=== PATIENT | female | born 1970 | race Caucasian/White ===

== ENCOUNTER 2018-04-15 19:58 | Emergency (ER) | payer SELFPAY ==
[~2018-04-15 19:58] MED LIST: ASPIRIN 81 MG TABLET, CHEWABLE ONE; CLOPIDOGREL BISULFATE 300 MG TABLET ONE; ENOXAPARIN SODIUM INJ 30 MG/0.3 ML DISP.SYRIN ONE
[2018-04-15 20:15] VITALS: BP 117/83
[2018-04-15] MEDS ORDERED: ASPIRIN 81 MG TABLET, CHEWABLE PO ONE (20:28)
[2018-04-15 20:39] LABS: ABSOLUTE EOSINOPHILS # (AUTO) 0.1 10^3/uL (0.0-0.6); ABSOLUTE LYMPHOCYTES (AUTO) 1.9 10^3/uL (0.5-4.7); ABSOLUTE MONOCYTES (AUTO) 0.7 10^3/uL (0.1-1.4); ABSOLUTE NEUT (AUTO) 7.1 10^3/uL (1.7-8.2); BASOPHILS % (AUTO) 0.3 % (0-2); EOSINOPHILS % (AUTO) 1.3 % (0-6); HEMATOCRIT 41.6 % (36.0-47.0); HEMOGLOBIN 13.9 g/dL (12.0-15.5); LYMPHOCYTES % (AUTO) 19.6 % (13-45); MEAN CORPUSCULAR HEMOGLOBIN 29.7 pg (27.0-33.4); MEAN CORPUSCULAR HGB CONC 33.5 g/dL (32.0-36.0); MEAN CORPUSCULAR VOLUME 89 fl (80-97); MONOCYTES % (AUTO) 7.1 % (3-13); PLATELET COUNT 174 10^3/uL (150-450); RED BLOOD COUNT 4.69 10^6/uL (3.72-5.28); RED CELL DISTRIBUTION WIDTH 13.8 % (11.5-14.0); SEGMENTED NEUTROPHILS % (AUTO) 71.7 % (42-78); TOTAL CELLS COUNTED % (AUTO) 100 %; WHITE BLOOD COUNT 9.8 10^3/uL (4.0-10.5)
--- NOTE | 2018-04-15 20:43 | ER Document Report ---
ED General - General Chief Complaint: Chest Pain Stated Complaint: CHEST PAIN Time Seen by Provider: 04/15/18 20:38 Mode of Arrival: Ambulatory Information source: Patient Notes: 47-year-old female with no significant past medical history presents with complaint of chest pain that started 3 hours prior to arrival. Pain is located centrally described as pressure with radiation to her left arm. Patient denies any associated diaphoresis, nausea, lightheadedness. She denies any prior history of [place]. She does have a 30 year smoking history. She does not take any medications. She denies any known drug allergies. TRAVEL OUTSIDE OF THE [place] IN LAST 30 DAYS: No - HPI Onset: This afternoon Quality of pain: Pressure Severity: Moderate Pain Level: 2 Associated symptoms: Other - Left arm pain Exacerbated by: Denies Relieved by: Denies Similar symptoms previously: No Recently seen / treated by doctor: No - Related Data Allergies/Adverse Reactions: No Known Allergies Allergy (Verified 04/15/18 22:49) Past Medical History - General Information source: Patient - Social History Smoking Status: Current Every Day Smoker Frequency of alcohol use: Occasional Drug Abuse: None Lives with: Spouse/Significant other Family History: Reviewed & Not Pertinent Patient has suicidal ideation: No Patient has homicidal ideation: No - Medical History Medical History: Negative Review of Systems - Review of Systems Notes: REVIEW OF SYSTEMS: CONSTITUTIONAL : Denies fever, chills, or sweats. Denies recent illness. Denies weight loss, recent hospitalizations. EENT: Denies visula changes, eye pain. Denies nasal or sinus congestion or discharge. Denies sore throat, oral lesions, difficulty swallowing. CARDIOVASCULAR: Patient admits to substernal chest pain with radiation to left arm RESPIRATORY: Denies cough, cold, or chest congestion. Denies shortness of breath, difficulty breathing, or wheezing. GASTROINTESTINAL: Denies abdominal pain or distention. Denies nausea, vomiting , or diarrhea. Denies blood in vomitus, stools, or per rectum. Denies black, tarry stools. Denies constipation. GENITOURINARY: Denies difficulty urinating, painful urination, burning, frequency, blood in urine, or vaginal discharge. MUSCULOSKELETAL: Denies back or neck pain or stiffness. Denies joint pain or swelling. SKIN: Denies rash, lesions or sores. HEMATOLOGIC : Denies easy bruising or bleeding. LYMPHATIC: Denies swollen, enlarged glands. NEUROLOGICAL: Denies confusion or altered mental status. Denies passing out or loss of consciousness. Denies dizziness or lightheadedness. Denies headache. Denies weakness or paralysis or loss of use of either side. Denies problems with gait or speech. Denies sensory loss, numbness, or tingling. Denies seizures. PSYCHIATRIC: Denies anxiety or stress. Denies depression, suicidal ideation, or homicidal ideation. Physical Exam - Vital signs Vitals: Temp Pulse BP Pulse Ox 97.9 F 102 H 117/83 100 04/15/18 20:13 04/15/18 20:13 04/15/18 20:13 04/15/18 20:13 Interpretation: Normal, Tachycardic. No: Febrile - Notes Notes: PHYSICAL EXAMINATION: GENERAL: Well-appearing, well-nourished and in no acute distress. HEAD: Atraumatic, normocephalic. EYES: Pupils equal round and reactive to light, extraocular movements intact, conjunctiva are normal. ENT: Nares patent, oropharynx clear without exudates. Moist mucous membranes. NECK: Normal range of motion, supple without lymphadenopathy LUNGS: Breath sounds clear to auscultation bilaterally and equal. No wheezes rales or rhonchi. HEART: Tachycardic, regular rhythm without murmurs ABDOMEN: Soft, nontender, nondistended abdomen. No guarding, no rebound. No masses appreciated. Female : deferred Musculoskeletal: Normal range of motion, no pitting or edema. No cyanosis. NEUROLOGICAL: Cranial nerves grossly intact. Normal speech, normal gait. Normal sensory, motor exams PSYCH: Normal mood, normal affect. SKIN: Warm, Dry, normal turgor, no rashes or lesions noted. Course - Re-evaluation Re-evalutation: 04/15/18 20:41 47-year-old female presented with complaint of 3 hours of substernal chest pain. EKG again for ST elevation in leads II, III and aVF. Repeat EKG shows progression of ST elevation now involving V6. I spoke to the rim fire priming tool setter Dr. Samuels at [facility] who recommends holding lytics if patient is pain-free which she is currently. She did receive aspirin, Lovenox and morphine. Patient remained stable throughout her ED course. Patient will be transported to [facility]. 04/15/18 23:21 - Vital Signs Vital signs: Temp Pulse Resp BP Pulse Ox 97.9 F 102 H 87 H 117/83 100 04/15/18 21:00 04/15/18 21:00 04/15/18 21:00 04/15/18 21:00 04/15/18 21:00 - Laboratory Result Diagrams: 04/15/18 20:20 04/15/18 20:20 Laboratory results interpreted by me: 04/15/18 20:20 BUN 22 H Est GFR (Non-Af Amer) 59 L Glucose 124 H AST 195 H ALT 158 H Creatine Kinase 187 H - Diagnostic Test Radiology reviewed: Image reviewed - EKG Interpretation by Me EKG shows normal: ST-T Waves - ST elevation in 2 3 and aVF, V6 Rate: Tachycardia When compared to previous EKG there are: Previous EKG unavailable Critical Care Note - Critical Care Note Total time excluding time spent on procedures (mins): 30 - minutes of critical care time spent in direct contact evaluating and reevaluating the patient, treating symptoms, reviewing labs and studies and speaking with family and consultants excluding any procedures Discharge - Discharge Clinical Impression: STEMI (ST elevation myocardial infarction) Qualifiers: Involved coronary artery: unspecified coronary artery Qualified Code(s): I21.3 - ST elevation (STEMI) myocardial infarction of unspecified site Condition: Fair Disposition: [facility]
[2018-04-15] MEDS ORDERED: MORPHINE SULFATE 10 MG/ML INJ ONE (20:52)
[2018-04-15 20:55] LABS: ALANINE AMINOTRANSFERASE 158 U/L (9-52); ALBUMIN 4.6 g/dL (3.5-5.0); ALKALINE PHOSPHATASE 77 U/L (38-126); ANION GAP 10 (5-19); ASPARTATE AMINO TRANSFERASE 195 U/L (14-36); BILIRUBIN,DIRECT 0.3 mg/dL (0.0-0.4); BILIRUBIN,TOTAL 0.4 mg/dL (0.2-1.3); BLOOD UREA NITROGEN 22 mg/dL (7-20); CALCIUM 9.9 mg/dL (8.4-10.2); CARBON DIOXIDE 29 mmol/L (22-30); CHLORIDE 103 mmol/L (98-107); CREATINE KINASE 187 U/L (30-135); GLUCOSE 124 mg/dL (75-110); POTASSIUM 4.2 mmol/L (3.6-5.0); TOTAL PROTEIN 7.5 g/dL (6.3-8.2)
--- NOTE | 2018-04-15 20:59 | RADIOLOGY REPORT (SQ) ---
EXAM DESCRIPTION: CHEST SINGLE VIEW COMPLETED DATE/TIME: 04/15/2018 8:32 pm REASON FOR STUDY: CHEST PAIN COMPARISON: None. EXAM PARAMETERS: NUMBER OF VIEWS: One view. TECHNIQUE: Single frontal radiographic view of the chest acquired. RADIATION DOSE: NA LIMITATIONS: None. FINDINGS: LUNGS AND PLEURA: No opacities, masses or pneumothorax. No pleural effusion. MEDIASTINUM AND HILAR STRUCTURES: No masses. Contour normal. HEART AND VASCULAR STRUCTURES: Heart normal in size. Normal vasculature. BONES: No acute findings. HARDWARE: None in the chest. OTHER: No other significant finding. IMPRESSION: NO ACUTE RADIOGRAPHIC FINDING IN THE CHEST. TECHNICAL DOCUMENTATION: JOB ID: [id number] [employer]- All Rights Reserved Reading location - IP/workstation name: [email or web address]
[2018-04-15] MEDS ORDERED: CLOPIDOGREL BISULFATE 300 MG TABLET ONE (21:03)
[2018-04-15 21:07] LABS: CREATINE KINASE MB 3.57 ng/mL (<4.55)
[2018-04-15 21:10] LABS: TROPONIN I 0.071 ng/mL
[2018-04-15] MEDS ORDERED: ENOXAPARIN SODIUM INJ 30 MG/0.3 ML DISP.SYRIN IV ONE (21:15)
[2018-04-15] MEDS ORDERED: ENOXAPARIN SODIUM INJ 100 MG/1 ML DISP.SYRIN SUBCUT ONE (21:30)
[2018-04-15] MEDS ORDERED: MORPHINE SULFATE 10 MG/ML INJ IV ONE (21:43)
--- NOTE | 2018-04-16 07:41 | EKG REPORT ---
SEVERITY:- ABNORMAL ECG - ATRIAL FIBRILLATION, V-RATE 70-113 INFERIOR INJURY, PROBABLE EARLY ACUTE INFARCT : Confirmed by: Gil Bryant MD 16-Apr-2018 07:41:17
--- NOTE | 2018-04-16 07:41 | EKG REPORT ---
SEVERITY:- ABNORMAL ECG - ATRIAL FIBRILLATION, V-RATE 77-132 INFERIOR INJURY, PROBABLE EARLY ACUTE INFARCT BORDERLINE LATERAL Q WAVES BORDERLINE R WAVE PROGRESSION, ANTERIOR LEADS : Confirmed by: Gil Bryant MD 16-Apr-2018 07:41:05
--- NOTE | 2018-04-16 07:41 | EKG REPORT ---
SEVERITY:- ABNORMAL ECG - ATRIAL FIBRILLATION, V-RATE 83-127 NONSPECIFIC INTRAVENTRICULAR CONDUCTION DELAY INFERIOR INJURY, ACUTE INFARCT : Confirmed by: iGl Bryant MD 16-Apr-2018 07:40:48
== END 2018-04-15 20:55 | disposition short-term general hospital (02) ==
LOC: ER 19:58
DX: I21.3 ST elevation (STEMI) myocardial infarction of unspecified site (principal); R07.9 Chest pain, unspecified; M79.602 Pain in left arm; F17.200 Nicotine dependence, unspecified, uncomplicated
CPT/HCPCS: 93005; 99285; 96372; 36415; 82553; 82550; 85025; 80053; 84484; 71045; 93010; J3490; J2270; J1650 ×2